=== PATIENT | male | born 1970 | race Two or more races ===

== ENCOUNTER 2020-02-04 18:05 | Inpatient (IN) | payer MEDICAID ==
[~2020-02-04] VITALS: Ht 175.3 cm; Wt 80.5 kg
[2020-02-04 18:10] VITALS: BP 136/80
[2020-02-04] MEDS ORDERED: Omnipaque-300 100ml vial INJ PRN (18:15)
[2020-02-04] MEDS ORDERED: Morphine Sulfate 2mg/ml Inj(IV/IM USE ONLY) IVP ONE (18:15)
[2020-02-04 19:00] LABS: BASOPHILS % (AUTO) 1.4 % (0.0-2.0); EOSINOPHILS % (AUTO) 1.6 % (0.0-3.0); HEMATOCRIT 46.3 % (42.0-52.0); HEMOGLOBIN 15.3 G/DL (14.2-18.0); LYMPHOCYTES % (AUTO) 33.9 % (20.0-45.0); MEAN CORPUSCULAR VOLUME 85 FL (80-99); MONOCYTES % (AUTO) 8.8 % (1.0-10.0); NEUTROPHILS % (AUTO) 54.4 % (45.0-75.0); PLATELET COUNT 229 K/UL (150-450); RED BLOOD COUNT 5.43 M/UL (4.70-6.10); WHITE BLOOD COUNT 7.8 K/UL (4.8-10.8)
--- NOTE | 2020-02-04 19:11 | Emergency Room Report ---
History of Present Illness General Chief Complaint: Abdominal Pain Source: Patient (Rainer Herr) Present Illness HPI 49-year-old male with history of renal stone brought in by paramedics due to sudden onset of right lower quadrant pain right flank pain rating a 10 out of 10 and tender to palpation. Patient complains of multiple bouts of nonbloody emesis and feeling feverish. Denies any urinary symptoms, diarrhea, blood in stool or vomit. Denies chest pain shortness of breath cough and congestion. Denies any history of abdominal surgery. Denies tobacco smoke, alcohol intake, drug use. 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 (Rainer Herr) Patient History Past Medical History: see triage record Past Surgical History: none Pertinent Family History: none Immunizations: UTD Reviewed Nursing Documentation: PMH: Agreed; PSxH: Agreed (Rainer Herr) Nursing Documentation-PMH Past Medical History: No History, Except For (Rainer Herr) Review of Systems All Other Systems: negative except mentioned in HPI (Rainer Herr) Physical Exam Vital Signs Date Time Temp Pulse Resp B/P (MAP) Pulse Ox O2 Delivery O2 Flow Rate FiO2 02/04/20 18:06 97.7 81 16 136/80 (98) 98 Room Air Sp02 EP Interpretation: reviewed, normal General Appearance: no apparent distress, alert, GCS 15, non-toxic Head: normocephalic, atraumatic Eyes: bilateral eye normal inspection, bilateral eye PERRL ENT: hearing grossly normal, normal pharynx, no angioedema, normal voice Neck: full range of motion, supple/symm/no masses Respiratory: chest non-tender, lungs clear, normal breath sounds, speaking full sentences Cardiovascular #1: regular rate, rhythm, no edema Gastrointestinal: normal bowel sounds, non-distended, no pulsatile mass, guarding - Right lower quadrant, rebound - Positive McBurney's Rectal: deferred Genitourinary: no CVA tenderness Musculoskeletal: back normal Neurologic: alert, motor strength/tone normal, oriented x3, sensory intact, responsive, speech normal Psychiatric: judgement/insight normal, memory normal, mood/affect normal, no suicidal/homicidal ideation Skin: no rash Lymphatic: no adenopathy (Rainer Herr) Medical Decision Making PA Attestation All my diagnosis and treatment plans were reviewed ad discussed with my supervising physician Dr. Morales (Rainer Herr) Diagnostic Impression: Primary Impression: Hydronephrosis with renal and ureteral calculous obstruction ER Course 49-year-old male with history of renal stone brought in by paramedics due to sudden onset of right lower quadrant pain right flank pain rating a 10 out of 10 and tender to palpation. Patient complains of multiple bouts of nonbloody emesis and feeling feverish. Denies any urinary symptoms, diarrhea, blood in stool or vomit. Denies chest pain shortness of breath cough and congestion. Denies any history of abdominal surgery. Denies tobacco smoke, alcohol intake, drug use. Ddx considered but are not limited to: appendicitis, cholecystis, gastritis, gastroenteritis, UTI, pyelonephritis, SBO, diverticulitis, influenza with GI manifestation, [place], pancreatitis Vital signs: are WNL, pt. is afebrile H&PE are most consistent with: Obstructing renal stone with hydronephrosis ORDERS: abdominal CT, abdominal pain set, EKG, ED INTERVENTIONS: NS bolus, morphine, Zofran, Phenergan, Pepcid, Rocephin Pending neurologist consult I signed out the patient to Dr. Morales at 8 PM Patient was admitted with diagnosis of hydronephrosis with obstructive renal stone to Dr. Ellison under supervision of : Andrew pt stable at time of admission (Rainer eHrr) ER Course Patient was endorsed me by physician respiratory therapy assistant. Patient was noted to have a right sided calculus to the UVJ with moderate hydronephrosis. Dr. Kwesi Ellison was contacted for inpatient management Labs Test 02/04/20 18:10 02/04/20 19:00 02/05/20 06:25 Prothrombin Time 11.2 SEC (9.30-11.50) Prothromb Time International Ratio 1.0 (0.9-1.1) Troponin I 0.000 ng/mL (0.000-0.056) Urine Color Pale yellow Urine Appearance Clear Urine pH 7 (4.5-8.0) Urine Specific [place] 1.010 (1.005-1.035) Urine Protein 1+ (NEGATIVE) Urine Glucose (UA) Negative (NEGATIVE) Urine Ketones 1+ (NEGATIVE) Urine Blood 1+ (NEGATIVE) Urine Nitrite Negative (NEGATIVE) Urine Bilirubin Negative (NEGATIVE) Urine Urobilinogen Normal MG/DL (0.0-1.0) Urine Leukocyte Esterase 1+ (NEGATIVE) Urine RBC 2-4 /HPF (0 - 0) Urine WBC 2-4 /HPF (0 - 0) Urine Squamous Epithelial Cells None /LPF (NONE/OCC) Urine Bacteria Few /HPF (NONE) Urine Opiates Screen Negative (NEGATIVE) Urine Barbiturates Screen Negative (NEGATIVE) Phencyclidine (PCP) Screen Negative (NEGATIVE) Urine Amphetamines Screen Negative (NEGATIVE) Urine Benzodiazepines Screen Negative (NEGATIVE) Urine Cocaine Screen Negative (NEGATIVE) Urine Marijuana (THC) Screen Negative (NEGATIVE) White Blood Count 8.2 K/UL (4.8-10.8) Red Blood Count 4.99 M/UL (4.70-6.10) Hemoglobin 14.1 G/DL (14.2-18.0) Hematocrit 41.8 % (42.0-52.0) Mean Corpuscular Volume 84 FL (80-99) Mean Corpuscular Hemoglobin 28.2 PG (27.0-31.0) Mean Corpuscular Hemoglobin Concent 33.6 G/DL (32.0-36.0) Red Cell Distribution Width 11.8 % (11.6-14.8) Platelet Count 194 K/UL (150-450) Mean Platelet Volume 6.9 FL (6.5-10.1) Neutrophils (%) (Auto) 63.2 % (45.0-75.0) Lymphocytes (%) (Auto) 24.5 % (20.0-45.0) Monocytes (%) (Auto) 10.9 % (1.0-10.0) Eosinophils (%) (Auto) 0.2 % (0.0-3.0) Basophils (%) (Auto) 1.2 % (0.0-2.0) Activated Partial Thromboplast Time 25 SEC (23-33) Sodium Level 142 MMOL/L (136-145) Potassium Level 3.8 MMOL/L (3.5-5.1) Chloride Level 108 MMOL/L (98-107) Carbon Dioxide Level 24 MMOL/L (21-32) Anion Gap 10 mmol/L (5-15) Blood Urea Nitrogen 16 mg/dL (7-18) Creatinine 0.9 MG/DL (0.55-1.30) Estimat Glomerular Filtration Rate > 60 mL/min (>60) Glucose Level 118 MG/DL (74-106) Calcium Level 7.8 MG/DL (8.5-10.1) Total Bilirubin 0.4 MG/DL (0.2-1.0) Aspartate Amino Transf (AST/SGOT) 24 U/L (15-37) Alanine Aminotransferase (ALT/SGPT) 45 U/L (12-78) Alkaline Phosphatase 93 U/L (46-116) Total Protein 6.7 G/DL (6.4-8.2) Albumin 3.3 G/DL (3.4-5.0) Globulin 3.4 g/dL Albumin/Globulin Ratio 1.0 (1.0-2.7) Amylase Level 43 U/L (25-115) Lipase 144 U/L (73-393) (Jacob Morales MD) EKG Diagnostic Results Rate: normal Rhythm: NSR ST Segments: no acute changes Other Impression No acute ST changes (Rainer Herr) CT/MRI/US Diagnostic Results CT/MRI/US Diagnostic Results : Imaging Test Ordered: CT abdomen pelvis with contrast Impression FINDINGS: Lung bases: Unremarkable. No mass. No consolidation. ABDOMEN: Liver: Benign scattered hepatic small cysts measure up to 1 cm in the anterior aspect of the right hepatic lobe requiring no additional follow-up. Otherwise unremarkable liver. Gallbladder and bile ducts: Unremarkable. No calcified stones. No ductal dilation. Pancreas: Unremarkable. No mass. No ductal dilation. Spleen: Unremarkable. No splenomegaly. Adrenals: Unremarkable. No mass. Kidneys and ureters: Large right partially obstructing distal ureteral 0.8 cm stone just above the right UVJ. Mild right hydroureteronephrosis. 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 Stomach and bowel: Unremarkable. No obstruction. No mucosal thickening. PELVIS: Appendix: No findings to suggest acute appendicitis. Bladder: Unremarkable. No mass. Reproductive: Unremarkable as visualized. ABDOMEN and PELVIS: Intraperitoneal space: Unremarkable. No free air. No significant fluid collection. Bones/joints: No acute fracture. No dislocation. Soft tissues: Unremarkable. Vasculature: Unremarkable. No abdominal aortic aneurysm. Lymph nodes: Unremarkable. No enlarged lymph nodes. IMPRESSION: 1. Large right partially obstructing distal ureteral 0.8cm stone just above the right UVJ. 2. Mild right hydroureteronephrosis. 3. 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 (Rainer Herr) Last Vital Signs Date Time Temp Pulse Resp B/P (MAP) Pulse Ox O2 Delivery O2 Flow Rate FiO2 02/04/20 18:10 97.7 16 136/80 98 Room Air 02/04/20 18:10 81 (Rainer Herr) Status: improved (Jacob Morales MD) Disposition: ADMITTED INPATIENT Condition: Serious Scripts No Active Prescriptions or Reported Meds Referrals: NOT CHOSEN IPA/,REFERRING (PCP) Rainer Herr Feb 04, 2020 19:11 Jacob Morales MD Feb 06, 2020 03:01
[2020-02-04 19:17] LABS: ANION GAP 13 mmol/L (5-15); BLOOD UREA NITROGEN 18 mg/dL (7-18); CALCIUM 8.6 MG/DL (8.5-10.1); CARBON DIOXIDE 26 MMOL/L (21-32); CHLORIDE 105 MMOL/L (98-107); CREATININE 1.2 MG/DL (0.55-1.30); POTASSIUM 3.8 MMOL/L (3.5-5.1); SODIUM 144 MMOL/L (136-145)
[2020-02-04 19:22] LABS: ALANINE AMINOTRANSFERASE 60 U/L (12-78); ALBUMIN 4.3 G/DL (3.4-5.0); ALBUMIN/GLOBULIN RATIO 1.2 (1.0-2.7); ALKALINE PHOSPHATASE 113 U/L (46-116); ASPARTATE AMINO TRANSFERASE 25 U/L (15-37); BILIRUBIN,TOTAL 0.3 MG/DL (0.2-1.0)
[2020-02-04] MEDS ORDERED: Ketorolac 30mg Inj IV ONE ×2 (19:30→20:00)
[2020-02-04 19:38] LABS: APPEARANCE,URINE CLEAR; BILIRUBIN, URINE NEGATIVE (NEGATIVE); COLOR,URINE PALE YELLOW; GLUCOSE, URINE (UA) NEGATIVE (NEGATIVE); KETONES,URINE 1+ (NEGATIVE); LEUKOCYTE ESTERASE ,URINE 1+ (NEGATIVE); NITRITE,URINE NEGATIVE (NEGATIVE); PH,URINE 7 (4.5-8.0); PROTEIN,URINE 1+ (NEGATIVE); UROBILINOGEN,URINE NORMAL MG/DL (0.0-1.0)
--- NOTE | 2020-02-04 19:56 | Diagnostic Imaging Report ---
EXAM: CT Abdomen and Pelvis With Intravenous Contrast CLINICAL HISTORY: PAIN TECHNIQUE: Axial computed tomography images of the abdomen and pelvis with intravenous contrast. CTDI is 5.5 mGy and DLP is 304.1 mGy-cm. One or more of the following dose reduction techniques were used: automated exposure control, adjustment of the mA and/or kV according to patient size, use of iterative reconstruction technique. Coronal and sagittal reformatted images were created and reviewed. COMPARISON: No relevant prior studies available. FINDINGS: Lung bases: Unremarkable. No mass. No consolidation. ABDOMEN: Liver: Benign scattered hepatic small cysts measure up to 1 cm in the anterior aspect of the right hepatic lobe requiring no additional follow- up. Otherwise unremarkable liver. Gallbladder and bile ducts: Unremarkable. No calcified stones. No ductal dilation. Pancreas: Unremarkable. No mass. No ductal dilation. Spleen: Unremarkable. No splenomegaly. Adrenals: Unremarkable. No mass. Kidneys and ureters: Large right partially obstructing distal ureteral 0.8 cm stone just above the right UVJ. Mild right hydroureteronephrosis. 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 Stomach and bowel: Unremarkable. No obstruction. No mucosal thickening. PELVIS: Appendix: No findings to suggest acute appendicitis. Bladder: Unremarkable. No mass. Reproductive: Unremarkable as visualized. ABDOMEN and PELVIS: Intraperitoneal space: Unremarkable. No free air. No significant fluid collection. Bones/joints: No acute fracture. No dislocation. Soft tissues: Unremarkable. Vasculature: Unremarkable. No abdominal aortic aneurysm. Lymph nodes: Unremarkable. No enlarged lymph nodes. IMPRESSION: 1. Large right partially obstructing distal ureteral 0.8cm stone just above the right UVJ. 2. Mild right hydroureteronephrosis. 3. 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
[2020-02-04] MEDS ORDERED: cefTRIAXone 1 GM in NS 55 ML IVPB ONE (20:00)
[2020-02-04] MEDS ORDERED: Miralax 17gm pkt ORAL PRN (20:45)
[2020-02-04] MEDS ORDERED: Nitroglycerin Subl 0.4mg tab SL PRN (20:45)
[2020-02-04 21:45] VITALS: BP 148/79
[2020-02-04] MEDS: D5 1/2NS 1,000 ML IV SCH (22:24)
[2020-02-04] MEDS ORDERED: Morphine Sulfate 2mg/ml Inj(IV/IM USE ONLY) IVP PRN ×3 (22:45→23:00)
[2020-02-04] MEDS: Heparin 5000 units/ml inj SUBQ SCH (23:02)
[2020-02-05 04:00] VITALS: BP 117/60
[2020-02-05 07:43] LABS: BASOPHILS % (AUTO) 1.2 % (0.0-2.0); EOSINOPHILS % (AUTO) 0.2 % (0.0-3.0); HEMATOCRIT 41.8 % (42.0-52.0); HEMOGLOBIN 14.1 G/DL (14.2-18.0); LYMPHOCYTES % (AUTO) 24.5 % (20.0-45.0); MEAN CORPUSCULAR VOLUME 84 FL (80-99); MONOCYTES % (AUTO) 10.9 % (1.0-10.0); NEUTROPHILS % (AUTO) 63.2 % (45.0-75.0); PLATELET COUNT 194 K/UL (150-450); RED BLOOD COUNT 4.99 M/UL (4.70-6.10); RED CELL DISTRIBUTION WIDTH 11.8 % (11.6-14.8); WHITE BLOOD COUNT 8.2 K/UL (4.8-10.8)
[2020-02-05 08:00] VITALS: BP 101/66
[2020-02-05 08:19] LABS: ALANINE AMINOTRANSFERASE 45 U/L (12-78); ALBUMIN 3.3 G/DL (3.4-5.0); ANION GAP 10 mmol/L (5-15); BILIRUBIN,TOTAL 0.4 MG/DL (0.2-1.0); BLOOD UREA NITROGEN 16 mg/dL (7-18); CARBON DIOXIDE 24 MMOL/L (21-32); CHLORIDE 108 MMOL/L (98-107); CREATININE 0.9 MG/DL (0.55-1.30); POTASSIUM 3.8 MMOL/L (3.5-5.1); SODIUM 142 MMOL/L (136-145)
[2020-02-05] MEDS: Heparin 5000 units/ml inj SUBQ SCH (08:43)
[2020-02-05 09:05] LABS: ALKALINE PHOSPHATASE 93 U/L (46-116); AMYLASE 43 U/L (25-115); ASPARTATE AMINO TRANSFERASE 24 U/L (15-37)
[2020-02-05 09:07] LABS: CALCIUM 7.8 MG/DL (8.5-10.1)
[2020-02-05] MEDS: D5 1/2NS 1,000 ML IV SCH (11:20)
[2020-02-05 12:00] VITALS: BP 118/60
--- NOTE | 2020-02-05 17:52 | History & Physical ---
History and Physical History & Physicial Kwesi Ellison MD Feb 05, 2020 17:52
[2020-02-05] MEDS ORDERED: cefTRIAXone 1 GM in D5W 55 ML IVPB SCH (18:00)
--- NOTE | 2020-02-05 18:44 | History and Physical Report ---
DATE OF ADMISSION: 02/04/2020 CHIEF COMPLAINT: Right-sided abdominal pain. HISTORY OF PRESENT ILLNESS: This is a 49-year-old gentleman, denies any past medical history, past surgical history, who presented to the hospital complaining about right-sided abdominal pain. The patient stated the pain is over 10/10 in intensity, complained of multiple bouts of nonbloody emesis and feeling feverish. Denies any urinary symptoms, diarrhea, bloody emesis. Denies any chest pain or shortness of breath. Denies any dysuria, frequency, hematuria. Shortly after initial evaluation in the emergency department, the patient had a CT scan of the abdomen, noted to be large right partial obstructing distal ureteral 0.8 cm stone just above the right UVJ, mild right hydroureteronephrosis and renal anatomy with variant cross fused right ectopic and horseshoe kidney. The patient subsequently was admitted to the hospital with the right-sided abdominal pain most likely secondary to renal calculi. PAST MEDICAL HISTORY/PAST SURGICAL HISTORY: As above none. MEDICATIONS: Medications at home none. ALLERGIES: No known drug allergies. SOCIAL HISTORY: Denies any smoking, alcohol, or drugs. FAMILY HISTORY: Noncontributory. REVIEW OF SYSTEMS: Mostly as above. Denies any dysuria, frequency, hematuria. Denies any hemoptysis or hematochezia. Denies any bright red blood per rectum. PHYSICAL EXAMINATION: VITAL SIGNS: On admission, temperature 97.7, pulse of 81, respirations 16, and blood pressure 136/80. GENERAL: The patient is awake, responsive, no acute distress. HEENT: Head and neck examination, pupils are equal and reactive to light. Extraocular muscles intact. Neck was supple. No JVD. LUNGS: Good air entry. No wheezing or rales. HEART: S1, S2. Regular rhythm. No murmurs or gallops. ABDOMEN: Soft, nondistended, nontender. Positive bowel sounds. No CVA tenderness. No rebound tenderness. EXTREMITIES: No cyanosis, clubbing, or edema. NEUROLOGIC: Cranial nerves II through XII grossly intact. Motor is 5/5 in all extremities. Gait is intact. RECTAL/GENITOURINARY: Refused and deferred. PSYCHIATRIC: Mood and affect is intact. LABORATORY AND DIAGNOSTIC DATA: On admission from the emergency department, sodium 144, potassium 3.8, chloride 105, bicarb 26, BUN 18, creatinine 1.2, and glucose is 115. Troponin 0.0. PT of 11, INR 1.0 PTT of 25. WBC of 7.8, hemoglobin 15, hematocrit 46, platelet 228. Urine drug screen is negative. Urinalysis +1 protein, +1 ketone, +1 blood, 2 to 4 rbc's, +1 leukocytes. COVID-[address] scan of the abdomen pelvic as mentioned above again showed that the patient has large right partial obstructing distal ureteral 0.8 cm stone just above the right UVJ. ASSESSMENT: Right-sided abdominal pain most likely secondary to right renal calculi. PLAN: At this time patient is pain free. He has not received any pain medication. Denies any nausea or vomiting. Denies any abdominal pain. His symptoms have completely resolved. I discussed with the patient possibility of passed the stone at this time and if the patient's feels comfortable, consider discharge home to follow up in my office within one week. I advised the patient if the pain become progressively worsening or pain again coming back, need to come back to the hospital in order to have further evaluation including lithotripsy. Discussed with the patient with regard to the pain medication. At this time, we will consider to discharge the patient on the Flomax as well as Tylenol extra-strength and advised the patient to follow up closely in my office within one week. Kwesi Ellison M.D. DR: Asim JOB#: [id number] CC:
--- NOTE | 2020-02-07 15:38 | Discharge Summary ---
Discharge Summary Discharge Summary _ DATE OF ADMISSION: 02/04/2020 DATE OF DISCHARGE: 02/05/2020 DISCHARGED BY: Dr. Kwesi Ellison BRIEF HOSPITAL COURSE: The patient is a 49-year-old gentleman, who denied any past medical history nor surgical history, who presented to the hospital due to right-sided abdominal pain. The patient stated pain is 10/10 in intensity, and had multiple bouts of nonbloody emesis and was feeling feverish. He denied any urinary sy mptoms, diarrhea or bloody emesis. Denied any chest pain or shortness of breath. Denied dysuria, frequency or hematuria. Upon evaluation at ED, vital signs were stable. He was afebrile and was saturating 90% on room air. Blood work did not show any leukocytosis. Hemoglobin and hematocrit were stable. Electrolytes were normal. LFTs normal. Lipase normal. Amylase normal. Urinalysis showed 1+ leukocyte esterase, 2-4 urine WBC, 2-4 urine RBC. Urine toxicology screen was negative. He was then admitted for evaluation of abdominal pain. He was admitted to medical floor. He was given IV hydration. He was started empirically on ceftriaxone. He was given pain management. Abdominal pain resolved. Patient did not receive any pain medication. He denie d any nausea or vomiting. Discussed possibility that patient passed the stone that is why he is now comfortable. He was given return and ED precautions. He was discharged on Flomax as well as Tylenol Extra Strength. Advised to follow- up in a week. FINAL DIAGNOSES: Right-sided pain most likely secondary to a right renal calculi DISPOSITION: Patient was discharged home. DISCHARGE MEDICATIONS: Refer to Discharge Medication List. DISCHARGE INSTRUCTIONS: Follow-up in a week. I have been assigned to complete a discharge summary on this account, I was not involved with the patient's management.--SERA Mari Jacqueline Robles NP Feb 07, 2020 15:38
== END 2020-02-05 16:02 | disposition home or self-care (01) | DRG 465 ==
LOC: EDBD 18:05 → EMR 18:33 → 4E 18:40 → EDBEDREQ 20:37
DX: N13.2 Hydronephrosis with renal and ureteral calculous obstruction (principal)
CPT/HCPCS: 36415; 74177; 80053; 80307; 81003; 82150; 83690; 84484; 85025; 85610; 85730; 86850; 86900; 86901; 87086; 93005; 96361; 96365; 96375; 99285; J2405; J7030; U0002